=== PATIENT | male | born 1975 ===

== ENCOUNTER 2016-10-25 21:06 | Emergency (ER) | payer SELFPAY ==
--- NOTE | 2016-10-25 21:50 | ED ---
Ene Vásquez SooYoung, scribed for Nicolas Diaz MD on 10/25/16 at 2126 . Substance Abuse/Use - HPI Summary HPI Summary: LEVEL 5 CAVEAT: HPI LIMITED DUE TO PT CONDITION, ETOH INTOXICATION/ UNCOOPERATIVE. Pt is a 41 y/o M BIBA presenting with ETOH intoxication. - History Of Current Complaint Chief Complaint: EDSubstanceAbuse Stated Complaint: 2208 Time Seen by Provider: 10/25/16 21:23 Hx Obtained From: EMS PMH/Surg Hx/FS Hx/Imm Hx Previously Healthy: No - LEVEL 5 CAVEAT: PMHx LIMITED DUE TO PT CONDITION, ETOH/ UNCOOPERATIVE Infectious Disease History: Unable to Obtain/Confirm Infectious Disease History: Denies: Traveled Outside the [place] in Last 30 Days - Family History Family History: LEVEL 5: FHx LIMITED DUE TO PT CONDITION, ETOH/UNCOOPERATIVE - Social History Occupation: Unemployed - OTHER Alcohol Use: pt states "drank a lot today" Substance Use Type: Reports: None Smoking Status (MU): Smoker, Current Status Unknown Review of Systems - ROS Summary Review of Systems Summary: LEVEL 5 CAVEAT: ROS LIMITED DUE TO PT CONDITION, ETOH INTOXICATION/ UNCOOPERATIVE. Positive: Other - pos: ETOH All Other Systems Reviewed And Are Negative: No Physical Exam Triage Information Reviewed: Yes Vital Signs On Initial Exam: Initial Vitals Temp Pulse Resp BP Pulse Ox 98 F 82 18 129/100 94 10/25/16 21:08 10/25/16 21:08 10/25/16 21:08 10/25/16 21:08 10/25/16 21:08 Vital Signs Reviewed: Yes Appearance: Positive: Well-Appearing, No Pain Distress - aob Skin: Positive: Warm Head/Face: Positive: Normal Head/Face Inspection Eyes: Positive: SANDER ENT: Positive: Hearing grossly normal Neck: Positive: Supple Respiratory/Lung Sounds: Positive: Breath Sounds Present Cardiovascular: Positive: RRR Abdomen Description: Positive: Nontender, Soft Musculoskeletal: Positive: Strength/ROM Intact - Krishna Coma Scale Coma Scale Total: 15 Diagnostics - Vital Signs Vital Signs Temp Pulse Resp BP Pulse Ox 10/25/16 21:08 98 F 82 18 129/100 94 - Laboratory Lab Statement: Any lab studies that have been ordered have been reviewed, and results considered in the medical decision making process. Course/Dx - Diagnoses Provider Diagnoses: ETOH abuse Discharge - Discharge Plan Condition: Stable Disposition: HOME Patient Education Materials: Alcohol Intoxication (ED) Referrals: Non Staff,Doctor [Primary Care Provider] - [facility] [Outside] The documentation as recorded by the Ene kidd SooYoung accurately reflects the service I personally performed and the decisions made by me, Nicolas Diaz MD.
== END 2016-10-26 06:50 | disposition home or self-care (01) ==
LOC: ED 21:06
DX: F10.129 Alcohol abuse with intoxication, unspecified (principal); Y90.8 Blood alcohol level of 240 mg/100 ml or more; Z72.0 Tobacco use
CPT/HCPCS: 36415; 80320; 99283; G0480